=== PATIENT | male | born 1965 | race Caucasian/White ===

== ENCOUNTER 2019-01-12 03:07 | Observation (INO) | payer BC ==
[2019-01-12] VITALS (10 sets, daily range): BP systolic 122–144; BP diastolic 72–85
[~2019-01-12] VITALS: Ht 177.8 cm; Wt 127.5 kg
[~2019-01-12 03:07] MED LIST: CIPR-214 PO; SIL50 FT
[2019-01-12] MEDS ORDERED: PROPOFOL EMUL(*) 10MG/ML 20 ML 20 ML ONE (11:14)
[2019-01-12] MEDS ORDERED: DEXAMETHASONE SOD 4 MG/ML VIAL ONE (11:14)
[2019-01-12] MEDS ORDERED: LIDOCAINE MPF 1% 5 ML VIAL ONE (11:14)
[2019-01-12] MEDS ORDERED: METOCLOPRAMIDE 10 MG/2 ML SDV ONE (11:14)
[2019-01-12] MEDS ORDERED: ONDANSETRON 4 MG/2 ML VIAL ONE (11:14)
[2019-01-12] MEDS ORDERED: FAMOTIDINE 20 MG TAB PO ONE (12:05)
[2019-01-12] MEDS ORDERED: MIDAZOLAM 2 MG/2 ML VIAL IVP PRN (12:05)
[2019-01-12] MEDS ORDERED: LEVOFLOXACIN/D5W*500 MG/100 ML 100 ML IVPB ONE (12:05)
[2019-01-12] MEDS ORDERED: NORMOSOL R SOLN(*) 1000 ML BAG 1,000 ML IV PRN (12:05)
[2019-01-12] MEDS ORDERED: LIDOCAINE/SOD BICARB 8.4% SYR ID ONE (12:05)
[2019-01-12] MEDS ORDERED: fentaNYL CITR 100 MCG/2 ML AMP ONE (12:41)
[2019-01-12] MEDS ORDERED: BELLADONNA ALK/OPIUM 60MG SUPP PR ONE (14:08)
[2019-01-12] MEDS ORDERED: ONDANSETRON 4 MG/2 ML VIAL IVP PRN (14:50)
[2019-01-12] MEDS ORDERED: BELLADONNA ALK/OPIUM 60MG SUPP PR PRN (14:50)
[2019-01-12] MEDS ORDERED: oxyCODON/ACET (*)5/325MG (CII) 1 TAB TAB PO PRN (14:50)
[2019-01-12] MEDS ORDERED: ACETAMINOPHEN 325 MG TAB PO PRN (14:50)
[2019-01-12] MEDS ORDERED: NALOXONE HCL 0.4 MG/ML VIAL IVP PRN (14:50)
[2019-01-12] MEDS ORDERED: HYDROmorphone HCL 2 MG/ML SDV IVP PRN (14:50)
[2019-01-12] MEDS: NS 0.9% 3000 ML IRRIGATION BAG IR PRN (18:31)
[2019-01-12] MEDS: NS 0.45%(*) 1000 ML BAG 1,000 ML IV SCH (18:31)
[2019-01-12] MEDS: FAMOTIDINE 20 MG TAB PO SCH (21:08)
[2019-01-12] MEDS: DOCUSATE SODIUM 100 MG CAP PO SCH (21:08)
[2019-01-13] MEDS: NS 0.45%(*) 1000 ML BAG 1,000 ML IV SCH (01:24)
[2019-01-13] MEDS: NS 0.9% 3000 ML IRRIGATION BAG IR PRN ×2 (01:24→05:45)
--- NOTE | 2019-01-13 05:05 | OPERATIVE REPORT 1 ---
EVENT DATE: January 12, 2019 SURGEON: Artie Bear MD ANESTHESIOLOGIST: Alonzo Woodward MD ANESTHESIA: General LMA. REVOLVING INVENTORY CLERK: None. PREOPERATIVE DIAGNOSIS Prostatism. POSTOPERATIVE DIAGNOSIS Prostatism. PROCEDURE PERFORMED Bipolar transurethral resection of the prostate. DESCRIPTION OF PROCEDURE Patient was brought to the operating room, and after the adequate induction of general anesthesia, he was placed in the relaxed dorsal lithotomy position. Genitalia were scrubbed, prepped and draped in a sterile fashion, and the urethra calibrated to 28 [place] with the [place] sounds. The resectoscope sheath was then positioned under visual guidance, and the resectoscope loop was placed. The prostate had a very high-riding bladder neck with a median lobe. There was moderate lateral hypertrophy. Beginning on the median lobe, the entire intravesical component of the prostate was resected circumferentially down to the muscular fibers of the bladder neck. The left lobe of the prostate was then resected from the bladder neck distally to the verumontanum. A similar procedure was then undertaken on the right lobe of the prostate. The tissue of the roof of the prostate was resected to the mid gland, and lastly, tissue in front of the verumontanum at the base was resected. The chips were then evacuated with the [employer] evacuator, and the button device used to obtain hemostasis and to ablate any residual adenoma. At the end, I elected to do a transurethral incision of the bladder neck at the five o'clock and seven o'clock positions, and the bladder neck itself was noted to be widely patent. A 22-Pakistani 30 mL three-way Talbot catheter was positioned and connected to continuous irrigation. A B and O suppository was administered. He was aroused from anesthesia and then transported to PACU in stable condition. SAVANNAH
[2019-01-13 05:44] VITALS: BP 118/75
[2019-01-13 06:09] LABS: PLATELET COUNT, AUTOMATED 210 K/uL (150-450)
[2019-01-13 06:54] VITALS: BP 124/77
[2019-01-13] MEDS: DOCUSATE SODIUM 100 MG CAP PO SCH (09:13)
[2019-01-13] MEDS: FAMOTIDINE 20 MG TAB PO SCH (09:13)
--- NOTE | 2019-01-13 10:02 | Urology Progress Note ---
Subjective Patient Complains of: Neurological: No: Syncope, Confusion, Weakness, Dizziness, Slurred Speech, Other Cardiovascular: No: Chest Pain, Palpitations, Orthostatic Hypotension, Other Gastrointestinal: No Nausea, No Vomiting, No Flatus, No Bowel Movement, No Other Genitourinary: Hematuria Physical Exam Vital Signs Date Time Temp Pulse Resp B/P (MAP) Pulse Ox O2 Delivery O2 Flow Rate FiO2 01/13/19 06:54 98.2 73 20 124/77 (93) 93 Room Air Intake and Output 01/13/19 07:03 Intake Total 93200 ml Output Total 52550 ml Balance -379 ml Intake Oral 462 ml IV Total 2359 ml Other 23001 ml Output Urine Total 4950 ml Post Void Residual 250 ml Other 02103 ml # Bowel Movements 1 General Appearance: Alert, Awake, No Acute Distress GI: Soft and Non-Tender : No CVA Tenderness Extremities: Soft and Non Tender Result Diagram: 01/13/19 0555 01/13/1953 Assessment and Plan Problems: (1) BPH with obstruction/lower urinary tract symptoms Status: Resolved Condition Removed his Talbot catheter discontinued his continuous bladder irrigations morning. I would like to see if he is able to void and confirm emptying with a bladder scan. If so, I will discharge him later today Time Spent: > 30 min Exam Sepsis Risk: No Definite Risk AKUA SUAREZ MD Jan 13, 2019 10:02
[2019-01-13 11:18] VITALS: Ht 177.8 cm; Wt 127.5 kg
== END 2019-01-13 11:31 | disposition home or self-care (01) ==
LOC: OR 03:07 → MED 15:55
PROVIDERS: ADMIT Urology; ATTEND Urology
DX: N40.0 Benign prostatic hyperplasia without lower urinary tract symptoms (principal); E66.01 Morbid (severe) obesity due to excess calories
CPT/HCPCS: 36415; 52648; 85025; 88305; G0378; J1100; J1170; J1956; J2001; J2250; J2405; J2704; J2765; J3010; 82310; 82374; 82435; 82565; 82947; 84132; 84295; 84520; A4346

== ENCOUNTER → 2019-01-27 | Outpatient (CLI) | payer BC ==
[2019-01-13 11:18] VITALS: BMI 40.3
[~2019-01-27] MED LIST changes: +OXYB15TA14 PO
== END ==
LOC: LAB 14:16
PROVIDERS: ATTEND Urology
DX: R30.0 Dysuria (principal)
CPT/HCPCS: 81001; 87088